=== PATIENT | female | born 1965 | race African-American/Black ===

== ENCOUNTER 2018-10-25 13:22 | Emergency (ER) | payer MEDICARE, OTHER ==
[2018-10-25 19:18] LABS: APPEARANCE,URINE TURBID; BILIRUBIN,URINE NEGATIVE (NEGATIVE); COLOR,URINE AMBER; GLUCOSE, URINE NEGATIVE (NEGATIVE); KETONES,URINE 20 mg/dL (NEGATIVE); LEUKOCYTE ESTERASE,URINE LARGE (NEGATIVE); NITRITE,URINE NEGATIVE (NEGATIVE); PROTEIN,URINE 100 mg/dL (NEGATIVE); URIC ACID CRYSTALS,URINE MODERATE /HPF; URINE SPECIFIC GRAVITY 1.029; UROBILINOGEN,URINE NEGATIVE mg/dL (<2.0)
[2018-10-25 19:24] LABS: BACTERIA (WET MOUNT) 3+ BACTERIA SEEN; RBCS (WET MOUNT) 1+ RBCS SEEN; T.VAGINALIS (WET MOUNT) TRICHOMONAS SEEN; WBCS (WET MOUNT) 4+ WBCS SEEN; YEAST (WET MOUNT) NO YEAST SEEN
[2018-10-25 20:49] LABS: CHLAM PCR NOT DETECTED (NOT DETECT)
[2018-10-25 21:08] LABS: ABSOLUTE EOSINOPHILS # (AUTO) 0.1 10^3/uL (0.0-0.6); ABSOLUTE LYMPHOCYTES (AUTO) 1.8 10^3/uL (0.5-4.7); ABSOLUTE MONOCYTES (AUTO) 0.4 10^3/uL (0.1-1.4); ABSOLUTE NEUT (AUTO) 1.3 10^3/uL (1.7-8.2); BASOPHILS % (AUTO) 0.5 % (0-2); EOSINOPHILS % (AUTO) 1.5 % (0-6); HEMATOCRIT 33.8 % (36.0-47.0); HEMOGLOBIN 11.3 g/dL (12.0-15.5); MEAN CORPUSCULAR HEMOGLOBIN 32.4 pg (27.0-33.4); MEAN CORPUSCULAR HGB CONC 33.3 g/dL (32.0-36.0); MEAN CORPUSCULAR VOLUME 97 fl (80-97); MONOCYTES % (AUTO) 12.5 % (3-13); PLATELET COUNT 304 10^3/uL (150-450); RED BLOOD COUNT 3.48 10^6/uL (3.72-5.28); SEGMENTED NEUTROPHILS % (AUTO) 35.5 % (42-78); TOTAL CELLS COUNTED % (AUTO) 100 %; WHITE BLOOD COUNT 3.5 10^3/uL (4.0-10.5)
[2018-10-25 21:15] LABS: ALANINE AMINOTRANSFERASE 39 U/L (9-52); ALBUMIN 4.2 g/dL (3.5-5.0); ALKALINE PHOSPHATASE 95 U/L (38-126); ANION GAP 9 (5-19); ASPARTATE AMINO TRANSFERASE 34 U/L (14-36); BILIRUBIN,DIRECT 0.2 mg/dL (0.0-0.4); BILIRUBIN,TOTAL 0.7 mg/dL (0.2-1.3); BLOOD UREA NITROGEN 12 mg/dL (7-20); CALCIUM 9.6 mg/dL (8.4-10.2); CARBON DIOXIDE 28 mmol/L (22-30); CHLORIDE 104 mmol/L (98-107); GLUCOSE 134 mg/dL (75-110); POTASSIUM 3.1 mmol/L (3.6-5.0); SODIUM 140.7 mmol/L (137-145); TOTAL PROTEIN 6.9 g/dL (6.3-8.2)
[2018-10-25] MEDS ORDERED: SULFAMETHOXAZOLE/TRIMETHOPRIM 800-160 MG TABLET PO ONE (21:36)
[2018-10-25] MEDS ORDERED: METRONIDAZOLE 500 MG TABLET PO ONE (21:36)
[2018-10-25] MEDS ORDERED: PHENAZOPYRIDINE HCL 200 MG TABLET PO ONE (21:47)
[2018-10-25 22:48] VITALS: BP 116/76
--- NOTE | 2018-10-25 23:07 | ER Document Report ---
Entered by ALEXIS ANSARI SCRIBE 10/25/18 [id number] Acting as scribe for:ANIYAH FUNES DO ED GI/ - General Chief Complaint: Vaginal Bleeding Stated Complaint: BLEEDING Time Seen by Provider: 10/25/18 18:32 Notes: Patient presents the emergency department complaining of rectal bleeding for approximately 2 weeks that her primary care physician attributed to hemorrhoids that has since tapered off and over the past week patient has developed vaginal bleeding. Patient states that sometimes she has to change her pad up to 5 times per day. Patient has had a hysterectomy and she knows she is not supposed to bleed any more. Patient states that sometimes the blood is bright red blood and other times it is a dark brown. Patient denies any melanotic stools. Denies any weakness or dizziness, denies any lightheadedness. Denies any new sexual partners. States she has not had sex in a month. Denies having inserted anything recently into her vagina that may have injured it. TRAVEL OUTSIDE OF THE [place] IN LAST 30 DAYS: No - Related Data Allergies/Adverse Reactions: acetaminophen [From Vicodin] Allergy (Verified 10/25/18 21:10) adhesive tape Allergy (Verified 10/25/18 21:10) bee venom protein (honey bee) Allergy (Verified 10/25/18 21:10) cephalexin Allergy (Verified 10/25/18 21:10) codeine Allergy (Verified 10/25/18 21:10) hydrocodone [From Vicodin] Allergy (Verified 10/25/18 21:10) NSAIDS (Non-Steroidal Anti-Inflamma Allergy (Verified 10/25/18 21:10) oxycodone Allergy (Verified 10/25/18 21:10) Penicillins Allergy (Verified 10/25/18 13:26) Iodinated Contrast- Oral and IV Dye Adverse Reaction (Verified 10/25/18 21:10) Iodine and Iodide Containing Produc Adverse Reaction (Verified 10/25/18 21:10) Past Medical History - General Information source: Patient Last Menstrual Period: hysterectomy - Social History Smoking Status: Never Smoker Chew tobacco use (# tins/day): No Frequency of alcohol use: Occasional Drug Abuse: None Family History: Reviewed & Not Pertinent Patient has suicidal ideation: No Patient has homicidal ideation: No - Past Medical History Cardiac Medical History: Reports: Hx Hypercholesterolemia, Hx Hypertension Endocrine Medical History: Reports: Hx Diabetes Mellitus Type 2 Renal/ Medical History: Denies: Hx Peritoneal Dialysis Past Surgical History: Reports: Hx Hysterectomy Review of Systems - Review of Systems Constitutional: No symptoms reported Cardiovascular: No symptoms reported Genitourinary: See HPI Female Genitourinary: See HPI Musculoskeletal: See HPI -: Yes All other systems reviewed and negative Physical Exam - Vital signs Vitals: Temp Pulse Resp BP Pulse Ox 98.2 F 69 16 117/86 H 97 10/25/18 14:08 10/25/18 14:08 10/25/18 14:08 10/25/18 14:08 10/25/18 14:08 - Notes Notes: PHYSICAL EXAM GENERAL: Alert, interacts well. No acute distress. HEAD: Normocephalic, atraumatic. EYES: Pupils equal, round, and reactive to light. Extraocular movements intact. ENT: Oral mucosa moist, tongue midline. NECK: Full range of motion. Supple. Trachea midline. LUNGS: No respiratory distress. HEART: Regular rate and rhythm. No murmurs, gallops, or rubs. ABDOMEN: Soft, non-tender. Non-distended. Bowel sounds present in all 4 quadrants. No guarding, rigidity, or rebound. FEMALE GENITOURINARY: Copious amounts of thick white vaginal discharge. Mild vaginal prolapse. Possible small polyps around the urethra, Inflammation around the urethra. No cervix palpated. RECTAL: Old hemorrhoids, no thrombosed hemorrhoids, no active bleeding, no tenderness on rectal examination. EXTREMITIES: Moves all 4 extremities spontaneously. NEUROLOGICAL: Alert and oriented x3. Normal speech. PSYCH: Normal affect, normal mood. SKIN: Warm, dry, normal turgor. No rashes or lesions noted. Course - Re-evaluation Re-evalutation: 10/25/18 22:24 CBC shows neutropenia with a white count of 3.5 and anemia with hemoglobin 11.3, platelets normal at 304, CMP shows low potassium at 3.1 otherwise unremarkable, urinalysis shows small blood, large leukocyte esterase, greater than 182 WBCs and 152 RBCs, 1+ bacteria and many WBC clumps. 36 squamous epithelial cells. Patient has a history of neurogenic bladder, self caths and is having some cramping lower abdominal pain so at this point I think it is prudent to treat this is a true urinary tract infection rather than contamination. It was sent for culture as well. Patient is treated with Bactrim. Patient's wet prep also shows 3+ bacteria and trichomonas, no signs of yeast. Gonorrhea and chlamydia swabs are negative. Discussed with patient that trichomonas is a sexually transmitted disease and I recommend that her partner be treated as well. Patient is rather upset as she and her have been for over 30 years and she states she has not had sex with anybody else. We did discuss that men can be asymptomatic with trichomonas while he passed back and forth to their partners. Patient states she has never had symptoms like this before. I did then speak with the patient's at her request. Informed the patient that he would need to be treated for trichomonas as well. I did follow CDC guidelines and write a prescription to treat him as the partner of a patient who has a sexually transmitted disease. This partners name is Gustabo Beyer, birthdate 04/18/1967. He is not allergic to any medications and does not have any chronic medical conditions, he does drink but not on a daily basis. Both patients were informed that they should not drink any alcohol while taking the Flagyl. - Vital Signs Vital signs: Temp Pulse Resp BP Pulse Ox 98.5 F 65 18 116/76 98 10/25/18 22:46 10/25/18 22:46 10/25/18 22:46 10/25/18 22:46 10/25/18 22:46 - Laboratory Result Diagrams: 10/25/18 20:40 10/25/18 20:40 Laboratory results interpreted by me: 10/25/18 10/25/18 10/25/18 18:39 20:40 20:40 WBC 3.5 L RBC 3.48 L Hgb 11.3 L Hct 33.8 L RDW 15.0 H Seg Neutrophils % 35.5 L Lymphocytes % 50.0 H Absolute Neutrophils 1.3 L Potassium 3.1 L Glucose 134 H Urine Protein 100 H Urine Ketones 20 H Urine Blood SMALL H Ur Leukocyte Esterase LARGE H Urine Ascorbic Acid 40 H Discharge - Discharge Clinical Impression: Trichomoniasis of vagina, Prolapse of anterior vaginal wall Urinary tract infection Qualifiers: Urinary tract infection type: acute cystitis Hematuria presence: with hematuria Qualified Code(s): N30.01 - Acute cystitis with hematuria Condition: Stable Disposition: HOME, SELF-CARE Additional Instructions: You have very slight prolapse of the anterior wall of your vagina. This may never need to be fixed but this is where you have some signs of irritation and this is where there are some areas that appear like they may have been bleeding previously. You have a urinary tract infection. I have treated you with Bactrim. Please take this twice a day until it is gone. Trichomonas Infection Trichomoniasis is infection of the vagina or male genital tract with Trichomonas vaginalis. It can be asymptomatic or cause urethritis, vaginitis, or occasionally cystitis, epididymitis, or prostatitis. Diagnosis is by microscopic examination of vaginal or prostatic secretions or by urethral culture. Patients and sex partners are treated with metronidazole. T. vaginalis is a flagellated, sexually transmitted protozoan that more often infects women (about 20% of women of reproductive age) than men. Infection may be asymptomatic in either sex, but asymptomatic is the rule for men. In men, protozoa may persist for long periods in the tract without causing symptoms; thus, protozoa may be transmitted unwittingly to sex partners. Trichomoniasis m ay account for up to 5% of nongonococcal, nonchlamydial urethritis in men in some areas. Co-infection with gonorrhea and other sexually transmitted diseases (STDs) is common. In women, symptoms range from none to copious, yellow-green, frothy vaginal discharge with soreness of the vulva and perineum, dyspareunia, and dysuria. Asymptomatic infection may become symptomatic at any time as the vulva and perineum become inflamed and edema develops in the labia. The vaginal galvan and surface of the cervix may have punctate, red "strawberry" spots. Urethritis and possibly cystitis may also occur. Men are usually asymptomatic; however, sometimes urethritis results in a discharge that may be transient, frothy, or purulent or that causes dysuria and frequency, usually early in the morning. Often, urethritis is mild and causes only minimal urethral irritation and occasional moisture at the urethral meatus, under the foreskin, or both. Epididymitis and prostatitis are rare complications. Your swabs for gonorrhea and chlamydia were negative. I have written a prescription for your Gustabo Beyer to have filled and be treated at same time for trichomonas. Neither of you should have sex with each other or anybody else until you have completed your full course of treatment. Prescriptions: Metronidazole [Flagyl 500 mg Tablet] 500 mg PO BID #14 tablet Sulfamethoxazole/Trimethoprim [Bactrim Ds Tablet] 1 each PO BID #10 tablet I personally performed the services described in the documentation, reviewed and edited the documentation which was dictated to the scribe in my presence, and it accurately records my words and actions.
== END 2018-10-25 22:48 | disposition home or self-care (01) ==
LOC: ER 13:22
DX: A59.01 Trichomonal vulvovaginitis (principal); N30.01 Acute cystitis with hematuria; N99.3 Prolapse of vaginal vault after hysterectomy; N93.9 Abnormal uterine and vaginal bleeding, unspecified; D64.9 Anemia, unspecified; D70.9 Neutropenia, unspecified; N31.9 Neuromuscular dysfunction of bladder, unspecified; K64.9 Unspecified hemorrhoids; I10 Essential (primary) hypertension; E11.9 Type 2 diabetes mellitus without complications; Z90.710 Acquired absence of both cervix and uterus; Z88.8 Allergy status to other drugs, medicaments and biological substances; Z91.048 Other nonmedicinal substance allergy status; Z91.030 Bee allergy status; Z88.1 Allergy status to other antibiotic agents; Z88.5 Allergy status to narcotic agent; Z88.0 Allergy status to penicillin; Z91.041 Radiographic dye allergy status
CPT/HCPCS: 99284; 36415; 87086; 87210; 85025; 87088; 80053; 81001; 87186; 87491; 87591; J3490